=== PATIENT | male | born 1970 | race Caucasian/White ===

== ENCOUNTER 2022-08-28 07:37 | Day surgery (SDC) | payer OTHER ==
[~2022-08-28] VITALS: Ht 185.4 cm; Wt 105.0 kg
[~2022-08-28 07:37] MED LIST: ACETAMINOPHEN325 M1 PO; FLEXERIL10 MG PO; MOTRIN400 MG PO; NORCO 5-325 TA1 EACH PO; OXYCODONE HCL5 MG PO
[2022-08-28 08:01] VITALS: BP 127/59
[2022-08-28 10:17] VITALS: BP 122/78
--- NOTE | 2022-08-29 08:03 | OR ---
[facility] [address] [place], [place] [address] Signed DATE OF OPERATION: 08/28/2022 SURGEON: Soo Morales MD PREOPERATIVE DIAGNOSES: 1. Mother with colon cancer at age 63 as well as colonic polyps. 2. Maternal grandfather with probable rectal cancer and colostomy. 3. Intermittent rectal bleeding, most likely associated with hemorrhoids. POSTOPERATIVE DIAGNOSES: 1. 4 mm polyp at 18 cm in rectum. 2. A single moderate-sized diverticulum in proximal left colon. 3. Minimal internal hemorrhoids with associated skin tags. PROCEDURE: Colonoscopy with hot biopsy. ESTIMATED BLOOD LOSS: None. INDICATIONS: Chris is a 52-year-old gentleman, asked to see me for his initial screening colonoscopy. He says once in a while he will see blood in his stool which he associates with some hemorrhoids. I had actually helped his mother with her right colectomy for colon cancer at the age of 63. She has also had serrated adenomatous polyps removed. She ended up with renal-cell carcinoma as well as breast cancer. I actually saw Chris in 2019 at the age of 48. At that time, we had asked him to return at age 51. The screening age is now dropped down age 46. In addition, he is pretty certain that his maternal grandfather had a colostomy due to rectal cancer. This would be Chris's 1st colonoscopy. No other significant lower GI complaints. In the office, I gave Chris a brochure on colonoscopy. He understands the nature of the test. There is risk including, but not limited to gas bloating, crampy abdominal pain, bleeding, perforation requiring surgery and missed diagnosis. We also reviewed the written instructions for the bowel prep line by line. He also understands the need for IV conscious sedation. He understands someone will have to take him home afterwards. He is not to go to work, drive, etc for 24 hours. He had expressed understanding and wished to proceed. PROCEDURE NOTE: The patient was taken into our endoscopy suite and placed in the left lateral decubitus position. He was given a total of 7 mg of Versed and 125 mcg of fentanyl to cover the Electronically Signed By: SOO MORALES MD 08/29/22 0803 PATIENT NAME: CHRIS FOY OPERATIVE REPORT DATE OF : 72 REPORT #: [id number] PHYSICIAN: SOO MORALES MD PCP: FIORDALIZA MILTON REPORT IS CONFIDENTIAL AND NOT TO BE RELEASED WITHOUT AUTHORIZATION [facility] [address] [place], [place] [address] Signed case. A digital rectal exam was performed and he had good sphincter tone. Really no external hemorrhoids. No masses. He does have a little induration and swelling to the prostate, although not particularly concerning. The adult colonoscope had been introduced and advanced quite readily up into the cecum under direct visualization of the camera. His prep was quite excellent. We could easily see the appendiceal orifice and ileocecal valve. The scope was then slowly withdrawn. We took pictures throughout for photodocumentation. We saw a single moderate-sized diverticulum in the proximal left colon. Just as we came into the top of the rectum, he had a small 4 mm polyp easily removed with hot biopsy forceps. Upon retroflexion of the scope, he has very minimal internal hemorrhoid tissue with tiny associated skin tags. After this, the gas was suctioned out and the colonoscope was removed. Chris tolerated the procedure quite well. RECOMMENDATIONS: I will see Chris back in my office in 7 to 14 days to review his results. Based on his mother's history and probably his grandfather's history, he will be on the 5-year rotation. Soo Morales MD ALB/MODL /[id number] cc: MD Fiordaliza Paredes PA Copies: SOO MORALES MD, LINDA PA ~ Electronically Signed By: SOO MORALES MD 08/29/22 0803 PATIENT NAME: CHRIS FOY OPERATIVE REPORT DATE OF : 72 REPORT #: [id number] PHYSICIAN: SOO MORALES MD PCP: FIORDALIZA MILTON REPORT IS CONFIDENTIAL AND NOT TO BE RELEASED WITHOUT AUTHORIZATION
--- NOTE | 2022-08-30 23:05 | PATH ---
[facility] [place] [facility] [address] [facility] [place] [address] Signed SPECIMEN(S): A COLON POLYP AT 18CM SPECIMEN SOURCE: A. COLON POLYP AT 18CM CLINICAL HISTORY: Hemorrhoids, rectal bleeding, family history of colon cancer FINAL PATHOLOGIC DIAGNOSIS: Colon, 18 cm, polypectomy: - Tubular adenoma. - There is no evidence of high-grade dysplasia or malignancy. HOLDENK:lyndsay:[id number] MICROSCOPIC EXAMINATION: Histologic sections of all submitted blocks are examined by light microscopy. These findings, together with the gross examination, support the pathologic diagnosis. GROSS DESCRIPTION: The specimen, labeled and designated "Furstenberg, T," and designated on the requisition "colon polypectomy at 18 cm," is received in formalin and consists of one armas soft tissue fragment that is 0.3 cm in greatest dimension. The specimen is entirely submitted in (A1). FB (under the direct supervision of a pathologist) The Gross Description was prepared using a voice recognition system. The report was reviewed for accuracy; however, sound-alike word errors, addition and/or deletions may occur. If there is any question about this report, please contact Client Services. PERFORMING LABORATORY: The technical component was performed by [facility], [address] [place] [id number] (CLIA# [id number]). The professional interpretation was performed by [facility], [facility], [address] [place] [address] (CLIA#: [id number]). Diagnostician: Antonio Martinez MD Pathologist Electronically Signed 08/30/2022 PATIENT NAME: CHRIS FOY PATHOLOGY DATE OF : 72 REPORT #: [id number] PHYSICIAN: [facility] PCP: FERNANDEZ MILTON REPORT IS CONFIDENTIAL AND NOT TO BE RELEASED WITHOUT AUTHORIZATION [address] [address] Signed Copies: ~ PATIENT NAME: CHRIS FOY PATHOLOGY DATE OF : 72 REPORT #: [id number] PHYSICIAN: [facility] PCP: FERNANDEZ MILTON REPORT IS CONFIDENTIAL AND NOT TO BE RELEASED WITHOUT AUTHORIZATION
== END 2022-08-28 10:30 | disposition home or self-care (01) ==
LOC: OPS 07:37 → DS 07:37 → OPS 09:00
PROVIDERS: ATTEND Colon & Rectal Surgery
PROC: 0DBQ8ZZ Excision of Anus, Via Natural or Artificial Opening Endoscopic (ICD-10-PCS; principal; 2022-08-28 09:00)
DX: D12.8 Benign neoplasm of rectum (principal); K57.31 Diverticulosis of large intestine without perforation or abscess with bleeding; K64.8 Other hemorrhoids; K64.4 Residual hemorrhoidal skin tags; Z80.0 Family history of malignant neoplasm of digestive organs; Z83.71 Family history of colonic polyps
CPT/HCPCS: 99153; G0500; J2250; J3010